=== PATIENT | male | born 1975 | race Caucasian/White ===

== ENCOUNTER 2020-05-25 08:25 | Outpatient (CLI) | payer BC, MEDICARE | END 2020-05-25 23:59 | disposition home or self-care (01) | LOC: MSC 08:25 | PROVIDERS: ATTEND Internal Medicine | DX: E03.9 Hypothyroidism, unspecified (principal); D17.9 Benign lipomatous neoplasm, unspecified; N43.40 Spermatocele of epididymis, unspecified; F41.9 Anxiety disorder, unspecified; J30.2 Other seasonal allergic rhinitis ==